=== PATIENT | male | born 1980 | race Caucasian/White ===

== ENCOUNTER → 2021-03-10 14:33 | Outpatient (CLI) | payer OTHER, SELFPAY ==
--- NOTE | ~2021-03-10 | XR_ITS ---
XR lumbar spine min 4V DATE: 03/10/2021 14:51 INDICATION: Acute left low back pain TECHNIQUE: Standing flexion, extension and neutral lateral views and AP view. Coned lateral lumbosacr al view. COMPARISON: None FINDINGS: There is mild dextroscoliosis of the lower thoracic and lumbar spine. No fracture or bone destruction is evident. The lumbar pedicles are intact. There is no evidence of i nstability on flexion or extension. There is mild loss of interspace height at L1-2, L3-4, L4-5. Sacral iliac joints are normal. IMPRESSION: Mild dextro scoliosis Mild degenerative disc disease Reviewed, dictated and finalized at location A.
== END ==
PROVIDERS: PCP Physician Assistant; Visit Provider Physician Assistant
DX: M51.36 Other intervertebral disc degeneration, lumbar region (principal)
CPT/HCPCS: 72110

== ENCOUNTER → 2021-04-02 14:49 | Outpatient (CLI) | payer OTHER, SELFPAY ==
--- NOTE | ~2021-04-02 | MR_ITS ---
EXAMINATION: MR lumbar spine wo con DATE: 04/02/2021 15:21 INDICATION: Acute left-sided low back pain. Fall down stairs 1 month ago. TECHNIQUE: Magnetic resonance imaging (MRI) of the lumbar spine was performed without intravenous con trast. Sequences included sagittal T2-weighted FSE, sagittal T2-weighted FS FSE, sagittal T1-weighted FSE, and axial T2-weighted FSE. COMPARISON: Lumbar spine radiograph 03/10/2021 FINDINGS: Bone alignment is normal. Vertebral body heights are normal. There is mildly decreased disc height at L3-L4 and L4-L5. The distal spinal cord signal intensity is normal. The conus medullaris i s at T12-L1. There is a small fluid collection at the junction of the subcutaneous fat and underlying fascia at S1. The following disc levels are specifically discussed: L1-L2: The disc does not extend beyond the endplate margin. There is mild bilateral facet joint osteo arthritis. There is no neural foraminal stenosis. There is no central canal stenosis. L2-L3: The disc does not extend beyond the endplate margin. There is mild bilateral facet joint osteo arthritis. There is no neural foraminal stenosis. There is no central canal stenosis. L3-L4: The disc is bulging. There is no facet joint osteoarthritis. There is mild bilateral neural fo raminal stenosis. There is mild central canal stenosis. L4-L5: The disc is bulging and has an annular fissure. There is moderate bilateral facet joint osteoa rthritis. There is mild bilateral neural foraminal stenosis. There is mild central canal stenosis. L5-S1: The disc does not extend beyond the endplate margin. There is severe right and mild left facet joint osteoarthritis. There is no neural foraminal stenosis. There is no central canal stenosis. IMPRESSION: 1. Mild lumbar spondylosis. 2. Small fluid collection at the junction of the subcutaneous fat and underlying fascia at S1, which may be an internal soft tissue degloving injury. Reviewed, dictated and finalized at location A. IMPRESSION: 1. Mild lumbar spondylosis. 2. Small fluid collection at the junction of the subcutaneous fat and underlyin g fascia at S1, which may be an internal soft tissue degloving injury.
== END ==
PROVIDERS: Visit Provider Physician Assistant
DX: M47.896 Other spondylosis, lumbar region (principal)
CPT/HCPCS: 72148